=== PATIENT | male | born 1995 | race Caucasian/White ===

== ENCOUNTER 2016-08-18 18:28 | Emergency (ER) | payer BC ==
[~2016-08-18] VITALS: Ht 185.4 cm; Wt 73.3 kg
[2016-08-18 18:35] VITALS: TEMP 36.4; Ht 185.4 cm; Wt 73.3 kg
[2016-08-18] MEDS ORDERED: SODIUM CHLORIDE 0.9% 1000ML 1,000 ML IV STA (18:57)
[2016-08-18 19:16] VITALS: O2SAT 99
--- NOTE | 2016-08-18 19:29 | DIAGNOSTIC IMAGING REPORT ---
CT SCAN OF THE BRAIN WITHOUT IV CONTRAST CLINICAL HISTORY: Seizure. Headache. Dizziness. COMPARISON STUDY: No priors. TECHNIQUE: Unenhanced axial CT scan of the brain is performed from the vertex to the skull base. Automated dose control exposure was utilized. CT DOSE: 537.48 mGy.cm FINDINGS: Brain parenchyma: The brain parenchyma is normal in appearance. There is no hemorrhage, mass effect, or evidence of acute territorial ischemia by CT criteria. Farris-white matter is preserved. No extra-axial fluid collection is seen. Ventricles, sulci, cisterns: Normal in configuration. Intracranial vasculature: The visualized intracranial vasculature at the skull base is normal in appearance. Calvarium: Unremarkable. Sinuses and mastoids: The visualized paranasal sinuses are clear. The mastoid air cells are well pneumatized. Orbits: The bony orbits are grossly intact. IMPRESSION: No acute intracranial abnormality. Electronically signed by: Dallas Ruiz M.D. 08/18/2016 7:28 PM Dictated Date/Time: 08/18/2016 7:26 PM
[2016-08-18 19:36] LABS: BASO % 0.2 %; BASO ABS # 0.03 K/uL (0-0.2); COMPLETE YES; EOS % 0.1 %; HEMATOCRIT 46.5 % (42-52); IG% 0.4 %; LYMPH % 7.9 %; LYMPH ABS # 1.11 K/uL (1.2-3.4); MEAN CELL VOLUME 86.4 fL (80-100); MEAN CORPUSCULAR HEMOGLOBIN 31.8 pg (25-34); MEAN CORPUSCULAR HGB CONC 36.8 g/dl (32-36); MEAN PLATELET VOLUME 10.8 fL (7.4-10.4); MONO % 5.8 %; NEUT % 85.6 %; PLATELET COUNT 330 K/uL (130-400); RED BLOOD COUNT 5.38 M/uL (4.7-6.1); WHITE BLOOD COUNT 13.99 K/uL (4.8-10.8)
[2016-08-18 19:42] LABS: INR 1.1 (0.9-1.1); PROTHROMBIN TIME (PATIENT) 11.8 SECONDS (9.0-12.0)
[2016-08-18 19:50] LABS: BUN/CREATININE RATIO 13.5 (10-20); CALCIUM 9.3 mg/dl (8.5-10.1); CREATININE 1.3 mg/dl (0.60-1.40); MAGNESIUM 2.2 mg/dl (1.8-2.4)
[2016-08-18 20:00] LABS: PHOSPHORUS 2.2 mg/dl (2.5-4.9); THYROID STIMULATING HORMONE 0.759 uIu/ml (0.300-4.500)
[2016-08-18] MEDS ORDERED: ACETAMINOPHEN 500 MG TAB PO STA (20:54)
--- NOTE | 2016-08-18 21:27 | EMERGENCY ROOM VISIT NOTE ---
History Report prepared by Yocasta: Diandra Robbins Under the Supervision of: Dr. Ruel Vega M.D. First contact with patient: 18:56 Chief Complaint: SEIZURE Stated Complaint: SEIZURE Nursing Triage Summary: Pt was studying and witnesses heard a loud thud. Witnesses went to check on him then and he was having tonic clonic movement. Unsure of how long it lasted. Pt then was postictal for 2-3 minutes. Upon arrival, EMS report he knew where he was but did not know day and he was diaphoretic. No known seizure history. Denies any drug use. BSG 160. Pt now c/o headache, dizziness History of Present Illness The patient is a 21 year old male who presents to the Emergency Room with complaints of an episode of seizure activity [employer]. Witnesses report that they heard a thud and saw the patient on the ground shaking. EMS was called and they report that the patient was post-ictal for 3 minutes. The patient was diaphoretic and nauseous. He received Zofran. His blood sugar was 160. The patient reports that he does not remember what happened. He was studying for a test and the next thing thing he remembers is waking up surrounded by EMS. He was feeling otherwise normal throughout the day. An hour before the episode, he reports he began to feel tired. He reports that he does not have a history of seizure and this has never happened before. He had a severe headache for about 30 minutes after the episode which has now resolved. He states that he has been under increased stress from exams and has not been eating as much. He has been sleeping only 6 hours a night. He admits to Adderall, Xanax, and marijuana use. He denies any medical problems or family history of seizures. Pt denies fevers, chills, visual changes, neck pain, chest pain, breathing difficulties, vomiting , abdominal pain, back pain, melena, hematochezia, urinary symptoms, numbness, weakness, lymphadenopathy, rash, or other complaints. Source of History: patient Onset: [employer] Position: other (global) Quality: other (seizure) Timing: other (episodic) Associated Symptoms: + diaphoresis, + headache, + nausea Review of Systems See HPI for pertinent positives and negatives. A total of ten systems were reviewed and were otherwise negative. Family History Pt reports no pertinent family history. Social History Smoking Status: Never Smoker Alcohol Use: occasionally Marital Status: single Housing Status: lives with roommate Occupation Status: [employer] Current/Historical Medications No Active Prescriptions or Reported Meds Allergies Coded Allergies: No Known Allergies (Unverified , 08/18/16) Physical Exam Vital Signs Date Time Temp Pulse Resp B/P Pulse Ox O2 Delivery O2 Flow Rate FiO2 08/18/16 21:54 65 16 128/66 99 Room Air 08/18/16 20:15 68 18 131/70 99 Room Air 08/18/16 19:16 99 Room Air 08/18/16 18:43 105 08/18/16 18:35 36.4 107 18 135/76 96 Room Air Physical Exam GENERAL: Awake, alert, well appearing, no distress HENT: Normocephalic, atraumatic. TM's normal. Oropharynx unremarkable. EYES: PERRL. EOMI. Normal conjunctiva. Sclera non-icteric. NECK: Supple. No nuchal rigidity. FROM. No JVD or bruit. RESPIRATORY: CTA CARDIAC: RRR. No murmur. ABDOMEN: Soft, non distended. No tenderness to palpation. No rebound or guarding. No masses. RECTAL: Deferred. MUSCULOSKELETAL: Unremarkable. No edema. No discoloration. Gross motor strength symmetric. NEURO: Cranial nerves 2-12 grossly intact. Normal sensorium. No sensory or motor deficits noted. Speech normal. No pronator drift. SKIN: No rash or jaundice noted. LYMPH: No adenopathy. Medical Decision & Procedures ER Provider Diagnostic Interpretation: Radiology results as stated below per my review and radiologist interpretation CT SCAN OF THE BRAIN WITHOUT IV CONTRAST CLINICAL HISTORY: Seizure. Headache. Dizziness. COMPARISON STUDY: No priors. TECHNIQUE: Unenhanced axial CT scan of the brain is performed from the vertex to the skull base. Automated dose control exposure was utilized. CT DOSE: 537.48 mGy.cm FINDINGS: Brain parenchyma: The brain parenchyma is normal in appearance. There is no hemorrhage, mass effect, or evidence of acute territorial ischemia by CT criteria. Farris-white matter is preserved. No extra-axial fluid collection is seen. Ventricles, sulci, cisterns: Normal in configuration. Intracranial vasculature: The visualized intracranial vasculature at the skull base is normal in appearance. Calvarium: Unremarkable. Sinuses and mastoids: The visualized paranasal sinuses are clear. The mastoid air cells are well pneumatized. Orbits: The bony orbits are grossly intact. IMPRESSION: No acute intracranial abnormality. Electronically signed by: Dallas Ruiz M.D. 08/18/2016 7:28 PM Dictated Date/Time: 08/18/2016 7:26 PM Laboratory Results 08/18/16 19:14 Red Blood Count 5.38, Mean Corpuscular Volume 86.4, Mean Corpuscular Hemoglobin 31.8, Mean Corpuscular Hemoglobin Concent 36.8, Mean Platelet Volume 10.8, Neutrophils (%) (Auto) 85.6, Lymphocytes (%) (Auto) 7.9, Monocytes (%) (Auto) 5.8, Eosinophils (%) (Auto) 0.1, Basophils (%) (Auto) 0.2, Neutrophils # (Auto) 11.98, Lymphocytes # (Auto) 1.11, Monocytes # (Auto) 0.81, Eosinophils # (Auto) 0.01, Basophils # (Auto) 0.03 08/18/16 19:14 Test 08/18/16 19:14 08/18/16 21:10 White Blood Count 13.99 K/uL (4.8-10.8) Red Blood Count 5.38 M/uL (4.7-6.1) Hemoglobin 17.1 g/dL (14.0-18.0) Hematocrit 46.5 % (42-52) Mean Corpuscular Volume 86.4 fL (80-100) Mean Corpuscular Hemoglobin 31.8 pg (25-34) Mean Corpuscular Hemoglobin Concent 36.8 g/dl (32-36) Platelet Count 330 K/uL (130-400) Mean Platelet Volume 10.8 fL (7.4-10.4) Neutrophils (%) (Auto) 85.6 % Lymphocytes (%) (Auto) 7.9 % Monocytes (%) (Auto) 5.8 % Eosinophils (%) (Auto) 0.1 % Basophils (%) (Auto) 0.2 % Neutrophils # (Auto) 11.98 K/uL (1.4-6.5) Lymphocytes # (Auto) 1.11 K/uL (1.2-3.4) Monocytes # (Auto) 0.81 K/uL (0.11-0.59) Eosinophils # (Auto) 0.01 K/uL (0-0.5) Basophils # (Auto) 0.03 K/uL (0-0.2) RDW Standard Deviation 39.9 fL (36.4-46.3) RDW Coefficient of Variation 12.5 % (11.5-14.5) Immature Granulocyte % (Auto) 0.4 % Immature Granulocyte # (Auto) 0.05 K/uL (0.00-0.02) Prothrombin Time 11.8 SECONDS (9.0-12.0) Prothromb Time International Ratio 1.1 (0.9-1.1) Activated Partial Thromboplast Time 24.8 SECONDS (21.0-31.0) Partial Thromboplastin Ratio 1.0 Anion Gap 13.0 mmol/L (3-11) Est Creatinine Clear Calc Drug Dose 94.0 ml/min Estimated GFR () 91.0 Estimated GFR (Non- 78.5 BUN/Creatinine Ratio 13.5 (10-20) Calcium Level 9.3 mg/dl (8.5-10.1) Phosphorus Level 2.2 mg/dl (2.5-4.9) Magnesium Level 2.2 mg/dl (1.8-2.4) Thyroid Stimulating Hormone (TSH) 0.759 uIu/ml (0.300-4.500) Urine Color YELLOW Urine Appearance CLEAR (CLEAR) Urine pH 5.0 (4.5-7.5) Urine Specific [place] 1.025 (1.000-1.030) Urine Protein 1+ (NEG) Urine Glucose (UA) NEG (NEG) Urine Ketones 2+ (NEG) Urine Occult Blood TRACE (NEG) Urine Nitrite NEG (NEG) Urine Bilirubin NEG (NEG) Urine Urobilinogen NEG (NEG) Urine Leukocyte Esterase NEG (NEG) Urine WBC (Auto) 1-5 /hpf (0-5) Urine RBC (Auto) 0-4 /hpf (0-4) Urine Hyaline Casts (Auto) 1-5 /lpf (0-5) Urine Epithelial Cells (Auto) 10-20 /lpf (0-5) Urine Bacteria (Auto) NEG (NEG) Laboratory results reviewed by me Medications Administered Medications (Trade) Dose Ordered Sig/Triny Route Start Time Stop Time Status Last Admin Dose Admin Sodium Chloride (Nss 1000ml) 1,000 ml @ 999 mls/hr Q1H1M STAT IV 08/18/16 18:57 08/18/16 19:57 DC 08/18/16 18:57 999 MLS/HR Acetaminophen (Tylenol Tab) 1,000 mg NOW STAT PO 08/18/16 20:54 08/18/16 20:55 DC 08/18/16 21:35 1,000 MG ECG Indication: other (seizure) Rate (beats per minute): 86 Rhythm: sinus with SA Findings: no acute ischemic change, no ectopy ED Course 1856: NSS 1000 ml @ 999 mls/hr IV. 1937: The patient was evaluated in room B10. A complete history and physical exam was performed. 2053: Acetaminophen 1000 mg PO. 2104: I discussed the patient's case [place], [facility] [place] He says that the patient should follow up in the office. He should not drive until he is cleared. There is no treatment for first episode seizure. 2116: I reevaluated the patient. He is feeling well. I discussed results and discharge instructions: he verbalized understanding and agreement. The patient is ready for discharge. Medical Decision Patient placed in seizure precautions immediately upon arrival. Nursing notes reviewed and agree them. The patient's history was concerning for a possible seizure. Differential diagnosis: Etiologies such as seizure, syncope, infection, hypoglycemia, electrolyte abnormalities, cardiac sources, intracerebral event, trauma, toxicologic, neurologic, as well as others were entertained. Physical examination: As above. No signs of trauma. Neurologically the patient was 100% intact. He was awake and alert. No meningeal findings. No headache at the time. ER treatment provided: Saline hydration On reassessment the patient felt better. The patient noted some mild headache beginning to return. He was given oral Tylenol. Diagnostics interpretation by me: ECG: Normal The labs revealed a slight leukocytosis and hyperglycemia. I suspect this is a stress response. The patient had normal electrolytes otherwise. TSH negative. Imaging studies: CT scan as above Consultation: A consultation was placed with the neurologist, Dr. Newell. The case was discussed and diagnostics were reviewed. He recommended conservative management. No treatment that I seizure medication at this time. No driving instructions given. The patient will follow-up with him in the office for further testing.. The patient had a seizure-like episode. He was studying and feeling tired. He then was found to have collapsed and was shaking with tonic-clonic like activity. He was postictal for about 3 minutes upon waking to having EMS surrounding him. I suspect that this is multifactorial. [employer]'s license form was submitted. The patient was counseled. He was advised to hydrate and not do any drugs. By the evaluation outlined above emergent etiologies such as infection, hypoglycemia, electrolyte abnormalities, cardiac sources, intracerebral event, toxicologic, neurologic,as well as others were deemed relatively unlikely. The patient was informed about the findings as listed above. All questions were answered and he was pleased with the treatment. Return instructions were outlined and the patient was discharged in stable condition. Outpatient prescription management: none Referral: The patient was referred to [facility] neurology for follow-up for a recheck of the current condition. The chart was completed utilizing [employer] Speech voice recognition software. Grammatical errors, random word insertions, pronoun errors, and incomplete sentences are an occasional consequence of this system due to software limitations, ambient noise, and hardware issues. Any formal questions or concerns about the content, text, or information contained within the body of this dictation should be directly addressed to the physician for clarification. Consults Time Called: 2102 Consulting Physician: Dr. Newell, [facility] [place] Returned Call: 2104 I discussed the patient's case with him. He says that the patient should follow up in the office. He should not drive until he is cleared. There is no treatment for first episode seizure. Impression Primary Impression: Seizure-like activity Scribe Attestation The scribe's documentation has been prepared under my direction and personally reviewed by me in its entirety. I confirm that the note above accurately reflects all work, treatment, procedures, and medical decision making performed by me. Departure Information Dispostion Home / Self-Care Prescriptions No Active Prescriptions or Reported Meds Referrals No Doctor, Assigned (PCP) Dylan Newell M.D. Forms HOME CARE DOCUMENTATION FORM, IMPORTANT VISIT INFORMATION, School Instructions Patient Instructions My [facility] Additional Instructions Seizure instructions: No driving until cleared in follow-up. Acetaminophen(Tylenol) may be used for fever or pain. Use 1000mg every six hours as needed. Avoid using more than 4000mg in a 24 hour period. Rest and drink plenty of fluids as tolerated. Do not take any drugs or substances not prescribed to you. Return to the ER for passing out, chest pain, headache, persistent vomiting, fevers, abdominal pain, chest pains, difficulty breathing, black or bloody stools, worsening of your condition, or as needed. Follow up with Dr. Newell of neurology for a recheck of your current condition Follow up with [facility] as well. A recheck of your blood sugar is advised as it was slightly elevated. This may simply be a stress response from the episode however a quick recheck in the office can verify.
[2016-08-18 21:28] LABS: URINE APPEARANCE CLEAR (CLEAR); URINE BILIRUBIN NEG (NEG); URINE COLOR YELLOW; URINE NITRITE NEG (NEG); URINE SPECIFIC GRAVITY 1.025 (1.000-1.030); UROBILINOGEN NEG (NEG)
[2016-08-18 21:29] LABS: MANUAL MICROSCOPIC REQUIRED? NO; REVIEW REQ? NO
[2016-08-18 21:54] VITALS: BP 128/66; PULSE 65; O2SAT 99
== END 2016-08-18 21:57 | disposition home or self-care (01) ==
LOC: C.EDB 18:30
DX: G40.909 Epilepsy, unspecified, not intractable, without status epilepticus (principal)